=== PATIENT | female | born 1935 | race Caucasian/White ===

== ENCOUNTER 2022-04-09 11:46 | Inpatient (IN) ==
[2022-04-09] MEDS ORDERED: XOPENEX 1.25 MG/3 ML NEBULE NEB SCH (14:15)
[2022-04-09 14:38] LABS: ABG BASE EXCESS -2.8 mmol/L (-2.0-2.0); ABG HCO3 21.9 mmol/L (22-26)
[2022-04-09] MEDS ORDERED: XOPENEX 1.25 MG/3 ML NEBULE NEB ONE (14:38)
[2022-04-09 14:39] LABS: ABG ALLEN TEST POS
[2022-04-09] MEDS: BROVANA IN SCH ×2 (14:58→20:05)
[2022-04-09] MEDS: XOPENEX 1.25 MG/3 ML NEBULE NEB SCH ×2 (15:00→17:40)
[2022-04-09] MEDS: PULMICORT NEB TX 0.5 MG NEB SCH ×3 (15:00→20:05)
[2022-04-09 15:25] LABS: BASOPHILS # (AUTO) 0.1 X10^3/uL (0.0-0.1); BASOPHILS % (AUTO) 0.5 % (0.2-1.0); EOSINOPHILS # (AUTO) 0.1 x10^3/uL (0.0-0.2); EOSINOPHILS % (AUTO) 1.1 % (0.9-2.9); HEMATOCRIT 38.1 % (36.0-47.0); HEMOGLOBIN 12.8 g/dL (12.0-16.0); LYMPHOCYTES # (AUTO) 0.9 X10^3/uL (1.3-2.9); LYMPHOCYTES % (AUTO) 7.4 % (21.0-51.0); MEAN CORPUSCULAR HEMOGLOBIN 30.1 pg (27.0-34.0); MEAN CORPUSCULAR HGB CONC 33.5 g/dL (33.0-35.0); MEAN CORPUSCULAR VOLUME 89.9 fL (80.0-100.0); MEAN PLATELET VOLUME 7.5 fL (7.4-11.0); MONOCYTES # (AUTO) 0.4 x10^3/uL (0.3-0.8); MONOCYTES % (AUTO) 3.2 % (0.0-13.0); NEUTROPHILS # (AUTO) 10.8 x10^3/uL (2.2-4.8); NEUTROPHILS % (AUTO) 87.8 % (42.0-75.0); RED BLOOD COUNT 4.24 X10^6/uL (3.5-5.4); RED CELL DISTRIBUTION WIDTH 14.8 % (11.6-16.5); WHITE BLOOD COUNT 12.3 X10^3/uL (3.6-10.0)
[2022-04-09 15:33] LABS: BILIRUBIN,URINE NEGATIVE (NEGATIVE); BLOOD/HEMOGLOBIN,URINE 1+ (NEGATIVE); GLUCOSE, URINE NEGATIVE (NEGATIVE); KETONES,URINE NEGATIVE (NEGATIVE); LEUKOCYTE ESTERASE ,URINE NEGATIVE (NEGATIVE); NITRITES,URINE NEGATIVE (NEGATIVE); PROTEIN,URINE NEGATIVE (NEGATIVE); UROBILINOGEN,URINE NORMAL (NORMAL)
[2022-04-09] MEDS: ROCEPHIN VIAL 1 GRAM 1 G in NS 100 ML IV 100 ML IV SCH (15:50)
[2022-04-09 15:52] LABS: COLOR,URINE YELLOW (YELLOW)
[2022-04-09 15:53] LABS: APPEARANCE,URINE CLEAR (CLEAR); BACTERIA,URINE TRACE /HPF (NEGATIVE); RBC,URINE 0-2 /HPF (0-3); SQUAMOUS EPITHELIAL CELL,UR FEW /HPF (NEGATIVE)
[2022-04-09] MEDS: ZITHROMAX INJ 500 MG VIAL 500 MG in NS 250 ML IV 250 ML IV SCH (15:53)
[2022-04-09] MEDS: NS 1,000 ML IV 1,000 ML IV PRN (15:54)
[2022-04-09 15:58] LABS: ALANINE AMINOTRANSFERASE 23 Units/L (12-78); ALBUMIN 3.7 g/dL (3.4-5.0); ALKALINE PHOSPHATASE 83 Units/L (46-116); ASPARTATE AMINO TRANSFERASE 24 Units/L (15-37); BLOOD UREA NITROGEN 22 mg/dL (7-18); CALCIUM 9.1 mg/dL (8.5-10.1); CARBON DIOXIDE 26.3 mmol/L (21-32); CHLORIDE 104 mmol/L (98-107); COR NA(FOR HYPERGLY) 142 mmol/L (136-145); CREATININE 1.04 mg/dL (0.55-1.02); SODIUM 141 mmol/L (136-145); TOTAL PROTEIN 7.3 g/dL (6.4-8.2); eGFR NON BLACK RACES 53 (>60)
[2022-04-09] MEDS ORDERED: XOPENEX 1.25 MG/3 ML NEBULE NEB PRN (15:59)
[2022-04-09] MEDS: SOLU-Medrol 40 MG VIAL IVP SCH (17:05)
--- NOTE | 2022-04-09 17:07 | CT ---
HISTORYARDSTUDYCTA CHESTCOMPARISONPortable chest radiograph from February 23, [address]22TECHNIQUEAxial CT images of the chest were obtained after the administration of 75 mL Omnipaque 350 IV contrast utilizing a CTA protocol. 3D MIPS were performed and reviewed for further evaluation.Radiation dose: 152.38 mGy-cm total DLPFINDINGSNo significant pericardial effusion.No mediastinal or hilar lymphadenopathy.Aorta is normal in caliber without dissection.Pulmonary arteries are normal in caliber without filling defects to suggest a pulmonary embolus.Mild diffuse bronchial wall thickening.Thyroid appears normal.No pleural effusion.No focal infiltrate.No pneumothorax.No concerning lung parenchymal lesion identified.Imaged portion of the upper abdomen is unremarkable.No acute osseous abnormality.IMPRESSION1. No pulmonary embolus identified.2. Mild diffuse bronchial wall thickening could represent the sequela of an atypical/viral infectious process, bronchitis, asthma or chronic edema.Electronically signed by: Eliot Krishnamurthy (Apr 09, 2022 17:06:10)
[2022-04-09] MEDS ORDERED: NovoLIN R (or HumuLIN R) SUBCUT PRN (19:25)
[2022-04-09] MEDS: SNACK - Diabetic Appropriate PO SCH (21:52)
[2022-04-10] MEDS: XOPENEX 1.25 MG/3 ML NEBULE NEB SCH ×4 (00:20→17:50)
[2022-04-10] MEDS: SOLU-Medrol 40 MG VIAL IVP SCH ×3 (01:39→16:33)
[2022-04-10 05:14] LABS: BASOPHILS % (AUTO) 0.2 % (0.2-1.0); EOSINOPHILS % (AUTO) 0.1 % (0.9-2.9); HEMOGLOBIN 11.6 g/dL (12.0-16.0); LYMPHOCYTES # (AUTO) 0.9 X10^3/uL (1.3-2.9); LYMPHOCYTES % (AUTO) 8.9 % (21.0-51.0); MEAN CORPUSCULAR HGB CONC 34.2 g/dL (33.0-35.0); MEAN CORPUSCULAR VOLUME 87.7 fL (80.0-100.0); MEAN PLATELET VOLUME 7.4 fL (7.4-11.0); MONOCYTES # (AUTO) 0.3 x10^3/uL (0.3-0.8); MONOCYTES % (AUTO) 2.7 % (0.0-13.0); NEUTROPHILS # (AUTO) 8.6 x10^3/uL (2.2-4.8); NEUTROPHILS % (AUTO) 88.1 % (42.0-75.0); RED BLOOD COUNT 3.88 X10^6/uL (3.5-5.4); RED CELL DISTRIBUTION WIDTH 14.4 % (11.6-16.5); WHITE BLOOD COUNT 9.8 X10^3/uL (3.6-10.0)
[2022-04-10 05:25] LABS: BLOOD UREA NITROGEN 18 mg/dL (7-18); CALCIUM 8.7 mg/dL (8.5-10.1); CHLORIDE 105 mmol/L (98-107); COR NA(FOR HYPERGLY) 143 mmol/L (136-145); CREATININE 0.87 mg/dL (0.55-1.02); SODIUM 142 mmol/L (136-145); eGFR NON BLACK RACES > 60 (>60)
[2022-04-10] MEDS: SYNTHROID 125 mcg TAB PO SCH (06:22)
--- NOTE | 2022-04-10 07:45 | RAD ---
HISTORYWHEEZING, SOB HX ASTHMA, COPD, HTN. SX APPENDIX, HYST, ORTHO.STUDYCHEST, PA/LAT ADULTCOMPARISONCTA chest 04/09/2022FINDINGSCardiac silhouette size is normal. The lungs are grossly clear without focal consolidation or pleural effusion. No pneumothorax.IMPRESSIONNo acute chest process.Electronically signed by: YULIYA ASTUDILLO (Apr 10, 2022 07:43:20)
[2022-04-10] MEDS: BROVANA IN SCH ×2 (08:17→21:00)
[2022-04-10] MEDS: PULMICORT NEB TX 0.5 MG NEB SCH ×2 (08:17→21:00)
[2022-04-10] MEDS: ZITHROMAX INJ 500 MG VIAL 500 MG in NS 250 ML IV 250 ML IV SCH (09:51)
[2022-04-10] MEDS: ZESTRIL TAB 40 MG PO SCH (09:52)
[2022-04-10] MEDS: ZyrTEC TAB 10 MG PO SCH (09:52)
[2022-04-10] MEDS: VITAMIN D3 125 mcg (5,000 UNITS) PO SCH (09:52)
[2022-04-10] MEDS: ROCEPHIN VIAL 1 GRAM 1 G in NS 100 ML IV 100 ML IV SCH (10:00)
--- NOTE | 2022-04-10 11:54 | DR.H&P ---
H&P - History & Physical for Day of: H&P Date: 04/09/22 - Chief Complaint Chief Complaint: CCC, SOB - History of Present Illness History of Present Illness: PT IS 86 WF, DIRECT ADMIT FROM DR REYNA WITH FAILED OUPT BRONCHITIS. PT STATES SHE WAS TREATED INPT AT [facility] ~3-4 WEEKS AGO THEN COMPLETED PO AND IM ANTIBIOTIC TREATMENT THIS PAST WEEK WITHOUT IMPROVEMENT OF SYMPTOMS. - Past Medical History Past Medical History: Arthritis, Diabetes, Hypertension - Past Surgical History Surgical History: Appendectomy, Hysterectomy - Family History Family Medical History: Coronary Artery Disease, Hypertension - Social History Does patient currently use any type of tobacco product: No Have you used tobacco products in the last 12 months: No Type of Tobacco Use: None Does any household member use tobacco: No Alcohol Use: None Drug Use: None - Medications Home Medications: levofloxacin [From Levaquin] Allergy (Verified 04/09/22 14:15) Sulfa (Sulfonamide Antibiotics) [SULFA] Allergy (Verified 04/09/22 14:15) CONTINUE taking the following medications azithromycin 500 mg tablet 1 tab PO QDAY 04/09/22 [History] cetirizine 10 mg tablet 10 mg PO QDAY 04/09/22 [History] cholecalciferol (vitamin D3) 125 mcg (5,000 unit) tablet (Vitamin D3) 125 mcg PO QDAY 04/09/22 [History] elderberry fruit 200 mg capsule 200 mg PO DAILY 04/09/22 [History] glucosamine sulfate 500 mg tablet (Glucosamine) 500 mg PO QDAY 04/09/22 [History] levalbuterol HCl 1.25 mg/3 mL solution for nebulization 1.25 mg inhalation Q4H 04/09/22 [History] levothyroxine 125 mcg tablet 125 mcg PO QDAY 04/09/22 [History] lisinopril 40 mg tablet 40 mg PO QDAY 04/09/22 [History] prednisone 20 mg tablet 1 tab PO DAILY 04/09/22 [History] vitamin B12 0.5 mg-folic acid 1 mg tablet 1 tab PO QDAY 04/09/22 [History] - Review of Systems Constitutional: Weakness, Malaise. denies: Fever Eyes: No Symptoms Reported ENT: No Symptoms Reported Respiratory: Cough, Shortness of Breath, SOB with Excertion, Pleuritic Pain, Sputum, Wheezing Cardiovascular: No Symptoms Reported Gastrointestinal: Nausea Genitourinary: No Symptoms Reported Musculoskeletal: No Symptoms Reported Skin: No Symptoms Reported Neurological: No Symptoms Reported - Physical Exam Vital Signs: Temperature 97.8 F Pulse Rate [Left Radial] 69 Pulse Rate 83 Respiratory Rate 20 Blood Pressure [Left Arm] 168/78 O2 Sat by Pulse Oximetry 97 Oriented: Normal Eyes: Normal Ear: Normal Nose: Normal Throat: Normal Respiratory: Wheezes Throughout Cardiovascular: Normal : Normal Auscultation: Bowel Sounds: Normal Palpation: Normal Tenderness: Normal Skin: Decreased Turgur Musculoskeletal: Normal Psychiatric: Normal Speech Pattern: Clear, Appropriate - Assessment/Plan (1) Acute bronchitis Status: Acute Plan: ADMIT, IV ATBX, RESP THERAPY AND SUPPLEMENTAL O2. CARDIAC MONITORING, BP CONTROL. BS CONTROL, VERIFY HOME MEDICATION. SPUTUM CULTURE, CXR (2) Hypertension Status: Acute (3) Diabetes Status: Acute - Allergies Allergies/Adverse Reactions: Allergies Allergy/AdvReac Type Severity Reaction Status Date / Time levofloxacin [From Levaquin] Allergy Verified 04/09/22 14:15 Sulfa (Sulfonamide Allergy Verified 04/09/22 14:15 Antibiotics) [SULFA]
[2022-04-10] MEDS: SNACK - Diabetic Appropriate PO SCH (20:00)
[2022-04-10 21:56] LABS: ALANINE AMINOTRANSFERASE 24 Units/L (12-78); ALBUMIN 3.3 g/dL (3.4-5.0); ALKALINE PHOSPHATASE 69 Units/L (46-116); ASPARTATE AMINO TRANSFERASE 21 Units/L (15-37); COR CA(FOR HYPOALB) 9.3 mg/dL (8.5-10.1); TOTAL PROTEIN 6.5 g/dL (6.4-8.2)
[2022-04-11] MEDS: SOLU-Medrol 40 MG VIAL IVP SCH ×3 (00:11→17:00)
[2022-04-11] MEDS: XOPENEX 1.25 MG/3 ML NEBULE NEB SCH ×4 (05:39→17:41)
[2022-04-11] MEDS: SYNTHROID 125 mcg TAB PO SCH (05:40)
[2022-04-11 06:11] LABS: BASOPHILS % (AUTO) 0.1 % (0.2-1.0); HEMOGLOBIN 11.5 g/dL (12.0-16.0); LYMPHOCYTES % (AUTO) 6.4 % (21.0-51.0); MEAN CORPUSCULAR HGB CONC 33.9 g/dL (33.0-35.0); MEAN CORPUSCULAR VOLUME 88.5 fL (80.0-100.0); MEAN PLATELET VOLUME 7.5 fL (7.4-11.0); MONOCYTES # (AUTO) 0.5 x10^3/uL (0.3-0.8); MONOCYTES % (AUTO) 3.6 % (0.0-13.0); NEUTROPHILS # (AUTO) 13.5 x10^3/uL (2.2-4.8); NEUTROPHILS % (AUTO) 89.9 % (42.0-75.0); RED BLOOD COUNT 3.84 X10^6/uL (3.5-5.4); RED CELL DISTRIBUTION WIDTH 14.6 % (11.6-16.5)
[2022-04-11] MEDS: LOVENOX INJ 40 MG SYR SC SCH (09:04)
[2022-04-11] MEDS: VITAMIN D3 125 mcg (5,000 UNITS) PO SCH (09:05)
[2022-04-11] MEDS: ZyrTEC TAB 10 MG PO SCH (09:05)
[2022-04-11] MEDS: ROCEPHIN VIAL 1 GRAM 1 G in NS 100 ML IV 100 ML IV SCH (09:05)
[2022-04-11] MEDS: ZESTRIL TAB 40 MG PO SCH (09:05)
[2022-04-11] MEDS: BROVANA IN SCH ×2 (09:26→20:09)
[2022-04-11] MEDS: PULMICORT NEB TX 0.5 MG NEB SCH ×2 (09:26→20:09)
[2022-04-11] MEDS: ZITHROMAX INJ 500 MG VIAL 500 MG in NS 250 ML IV 250 ML IV SCH (10:12)
[2022-04-11] MEDS: PROTONIX INJ 40 MG VIAL IVP SCH ×2 (10:42→21:03)
[2022-04-11] MEDS: TESSALON PERLES PO SCH ×2 (10:42→21:03)
--- NOTE | 2022-04-11 17:27 | PCM.PROG ---
Progress Note - Progress Note for Day of Date of Exam: 04/10/22 - Subjective Subjective: PT IS 86 WF, DIRECT ADMIT FROM DR REYNA WITH FAILED OUPT BRONCHITIS. PT STATES SHE WAS TREATED INPT AT [facility] ~3-4 WEEKS AGO THEN COMPLETED PO AND IM ANTIBIOTIC TREATMENT THIS PAST WEEK WITHOUT IMPROVEMENT OF SYMPTOMS. SINCE ADMISSION SHE HAD BEEN ON IV ZITHROMAX AND ROCEPHIN WITH IV SOLU MEDROL AND RESP THERAPY. PT CONTINUES TO CO SEVERE COUGHING WITH MUCOUS PRODUCTION. PT CO SORE TO UPPER ABDOMINAL WALL MUSCLES FROM COUGHING. WE REVIEWED LABS AND DIAGNOSTIC TESTS WITH PT THIS MORNING. - Past Medical Family Social History Past Med/Fam/Surg Hx: No changes since H&P Allergies: Allergies levofloxacin [From Levaquin] Allergy (Verified 04/09/22 14:15) Sulfa (Sulfonamide Antibiotics) [SULFA] Allergy (Verified 04/09/22 14:15) - Review of Systems ROS: No change since H&P - Vital Signs and I&O's Vital Signs: Temperature 97.5 F Pulse Rate [Left Radial] 75 Pulse Rate 74 Respiratory Rate 20 Blood Pressure [Left Arm] 157/70 O2 Sat by Pulse Oximetry 94 Intake and Output: Intake & Output 04/09/22 04/10/22 04/11/22 04/12/22 11:59 11:59 11:59 11:59 Intake Total 880 / 880 1320 / 1320 840 / 840 Balance 880 / 880 1320 / 1320 840 / 840 - Physical Exam Oriented: Normal Eyes: Normal Ear: Normal Nose: Normal Throat: Normal Respiratory: Diminished, Wheezes Cardiovascular: Normal : Normal Auscultation: Bowel Sounds: Normal Tenderness: Normal Skin: Decreased Turgur Musculoskeletal: Normal Psychiatric: Normal Speech Pattern: Clear - Laboratory and Diagnostics Result Diagrams: 04/11/22 05:25 04/10/22 04:25 Labs: 04/09/22 14:55 Urine,Clean Catch Urine Culture - Final 04/09/22 17:25 Sputum - Expectorated Sputum Sputum Culture - Preliminary 04/09/22 17:25 Sputum - Expectorated Sputum - Final Laboratory WBC 15.0 X10^3/uL (3.6-10.0) H 04/11/22 05:25 RBC 3.84 X10^6/uL (3.5-5.4) 04/11/22 05:25 Hgb 11.5 g/dL (12.0-16.0) L 04/11/22 05:25 Hct 34.0 % (36.0-47.0) L 04/11/22 05:25 MCV 88.5 fL (80.0-100.0) 04/11/22 05:25 MCH 30.0 pg (27.0-34.0) 04/11/22 05:25 MCHC 33.9 g/dL (33.0-35.0) 04/11/22 05:25 RDW 14.6 % (11.6-16.5) 04/11/22 05:25 Plt Count 242 X10^3/uL (150.0-450.0) 04/11/22 05:25 MPV 7.5 fL (7.4-11.0) 04/11/22 05:25 Neut % (Auto) 89.9 % (42.0-75.0) H 04/11/22 05:25 Lymph % (Auto) 6.4 % (21.0-51.0) L 04/11/22 05:25 [place] % (Auto) 3.6 % (0.0-13.0) 04/11/22 05:25 Eos % (Auto) 0.0 % (0.9-2.9) L 04/11/22 05:25 Baso % (Auto) 0.1 % (0.2-1.0) L 04/11/22 05:25 Neut # (Auto) 13.5 x10^3/uL (2.2-4.8) H 04/11/22 05:25 Lymph # (Auto) 1.0 X10^3/uL (1.3-2.9) L 04/11/22 05:25 [place] # (Auto) 0.5 x10^3/uL (0.3-0.8) 04/11/22 05:25 Eos # (Auto) 0.0 x10^3/uL (0.0-0.2) 04/11/22 05:25 Baso # (Auto) 0.0 X10^3/uL (0.0-0.1) 04/11/22 05:25 Absolute Nucleated RBC 0.0 /100WBC 04/11/22 05:25 ESR 28 MM/HOUR (0-20) H 04/09/22 14:40 D-Dimer 0.49 ug/ml (0.0-0.57) 04/09/22 14:40 Sample Site Rrad 04/09/22 14:35 ABG pH 7.380 (7.35-7.45) 04/09/22 14:35 ABG pCO2 37.0 mmHg (35.0-45.0) 04/09/22 14:35 ABG pO2 135.0 mmHg (80.0-100.0) H 04/09/22 14:35 ABG HCO3 21.9 mmol/L (22-26) L 04/09/22 14:35 ABG O2 Saturation 99.0 % (90-100) 04/09/22 14:35 ABG Base Excess -2.8 mmol/L (-2.0-2.0) L 04/09/22 14:35 Ranjan Test Pos 04/09/22 14:35 A-a Gradient -32.0 mmHg 04/09/22 14:35 FiO2 21.0 04/09/22 14:35 Blood Gas Comments Nicole well ms 04/09/22 14:35 Sodium 142 mmol/L (136-145) 04/10/22 04:25 Corrected Sodium 143 mmol/L (136-145) 04/10/22 04:25 Potassium 4.4 mmol/L (3.5-5.1) 04/10/22 04:25 Chloride 105 mmol/L (98-107) 04/10/22 04:25 Carbon Dioxide 27.0 mmol/L (21-32) 04/10/22 04:25 BUN 18 mg/dL (7-18) 04/10/22 04:25 Creatinine 0.87 mg/dL (0.55-1.02) 04/10/22 04:25 Est GFR (MDRD) Af Amer > 60 (>60) 04/10/22 04:25 Est GFR (MDRD) Non-Af > 60 (>60) 04/10/22 04:25 Glucose 132 mg/dL (65-99) H 04/10/22 04:25 POC Glucose (mg/dL) 247 mg/dL (65-99) H 04/11/22 16:57 Calcium 8.7 mg/dL (8.5-10.1) 04/10/22 04:25 Corrected Calcium 9.3 mg/dL (8.5-10.1) 04/10/22 04:25 Total Bilirubin 0.10 mg/dL (0.2-1.0) L 04/10/22 04:25 AST 21 Units/L (15-37) 04/10/22 04:25 ALT 24 Units/L (12-78) 04/10/22 04:25 Alkaline Phosphatase 69 Units/L (46-116) 04/10/22 04:25 Creatine Kinase 211 Units/L (26-192) H 04/09/22 22:15 Troponin I High Sens 8.1 ng/L (4.0-60.0) 04/10/22 04:25 C-Reactive Protein 2.20 mg/L (0-3.0) 04/09/22 14:40 Total Protein 6.5 g/dL (6.4-8.2) 04/10/22 04:25 Albumin 3.3 g/dL (3.4-5.0) L 04/10/22 04:25 Globulin 3.2 g/dL (2.5-4.5) 04/10/22 04:25 Albumin/Globulin Ratio 1.0 Ratio (1.1-2.1) L 04/10/22 04:25 Specimen Type Clean catch urine 04/09/22 14:55 Urine Color Yellow (YELLOW) 04/09/22 14:55 Urine Appearance Clear (CLEAR) 04/09/22 14:55 Urine pH 5.0 (5.0 - 8.0) 04/09/22 14:55 Ur Specific [place] 1.020 (1.000-1.030) 04/09/22 14:55 Urine Protein Negative (NEGATIVE) 04/09/22 14:55 Urine Glucose (UA) Negative (NEGATIVE) 04/09/22 14:55 Urine Ketones Negative (NEGATIVE) 04/09/22 14:55 Urine Blood 1+ (NEGATIVE) 04/09/22 14:55 Urine Nitrite Negative (NEGATIVE) 04/09/22 14:55 Urine Bilirubin Negative (NEGATIVE) 04/09/22 14:55 Urine Urobilinogen Normal (NORMAL) 04/09/22 14:55 Ur Leukocyte Esterase Negative (NEGATIVE) 04/09/22 14:55 Urine RBC 0-2 /HPF (0-3) 04/09/22 14:55 Urine WBC 0-2 /HPF (0-5) 04/09/22 14:55 Ur Squamous Epith Cells Few /HPF (NEGATIVE) 04/09/22 14:55 Urine Bacteria Trace /HPF (NEGATIVE) 04/09/22 14:55 Ur Culture Indicated? No/not indicated 04/09/22 14:55 SARS-CoV-2 (PCR) Negative (NEGATIVE) 04/09/22 14:21 Influenza Type A (PCR) Negative (NEGATIVE) 04/09/22 14:21 Influenza Type B (PCR) Negative (NEGATIVE) 04/09/22 14:21 RSV (PCR) Negative (NEGATIVE) 04/09/22 14:21 - Plan (1) Acute bronchitis Status: Acute Plan: IV ATBX, RESP THERAPY AND SUPPLEMENTAL O2. CARDIAC MONITORING, BP CONTROL. BS CONTROL, VERIFY HOME MEDICATION. SPUTUM CULTURE, CXR (2) Hypertension Status: Acute (3) Diabetes Status: Acute
--- NOTE | 2022-04-11 17:29 | PCM.PROG ---
Progress Note - Progress Note for Day of Date of Exam: 04/11/22 - Subjective Subjective: PT IS 86 WF, DIRECT ADMIT FROM DR REYNA WITH FAILED OUPT BRONCHITIS. PT STATES SHE WAS TREATED INPT AT [facility] ~3-4 WEEKS AGO THEN COMPLETED PO AND IM ANTIBIOTIC TREATMENT THIS PAST WEEK WITHOUT IMPROVEMENT OF SYMPTOMS. SINCE ADMISSION SHE HAD BEEN ON IV ZITHROMAX AND ROCEPHIN WITH IV SOLU MEDROL AND RESP THERAPY. PT CONTINUES TO CO SEVERE COUGHING WITH MUCOUS PRODUCTION. PT REPORTS EPISODE OF NAUSEA THIS MORNING WITHOUT VOMITING. PT DENIES ANY FEVER OR CHILLS. PT WBC 15, HGB 11.5, BUN 18/CREAT 0.87 TODAY. PT ENCOURAGED TO INCREASE PO HYDRATION AND AMBULATE IN ROOM WITH ASSITANCE NEEDED. - Past Medical Family Social History Past Med/Fam/Surg Hx: No changes since H&P Allergies: Allergies levofloxacin [From Levaquin] Allergy (Verified 04/09/22 14:15) Sulfa (Sulfonamide Antibiotics) [SULFA] Allergy (Verified 04/09/22 14:15) - Review of Systems ROS: No change since H&P - Vital Signs and I&O's Vital Signs: Temperature 97.5 F Pulse Rate [Left Radial] 75 Pulse Rate 74 Respiratory Rate 20 Blood Pressure [Left Arm] 157/70 O2 Sat by Pulse Oximetry 94 Intake and Output: Intake & Output 04/09/22 04/10/22 04/11/22 04/12/22 11:59 11:59 11:59 11:59 Intake Total 880 / 880 1320 / 1320 840 / 840 Balance 880 / 880 1320 / 1320 840 / 840 - Physical Exam Oriented: Normal Eyes: Normal Ear: Normal Nose: Normal Throat: Normal Respiratory: Diminished, Wheezes Cardiovascular: Normal : Normal Auscultation: Bowel Sounds: Normal Tenderness: Normal Skin: Decreased Turgur Musculoskeletal: Normal Psychiatric: Normal Speech Pattern: Clear - Laboratory and Diagnostics Result Diagrams: 04/11/22 05:25 04/10/22 04:25 Labs: 04/09/22 14:55 Urine,Clean Catch Urine Culture - Final 04/09/22 17:25 Sputum - Expectorated Sputum Sputum Culture - Preliminary 04/09/22 17:25 Sputum - Expectorated Sputum - Final Laboratory WBC 15.0 X10^3/uL (3.6-10.0) H 04/11/22 05:25 RBC 3.84 X10^6/uL (3.5-5.4) 04/11/22 05:25 Hgb 11.5 g/dL (12.0-16.0) L 04/11/22 05:25 Hct 34.0 % (36.0-47.0) L 04/11/22 05:25 MCV 88.5 fL (80.0-100.0) 04/11/22 05:25 MCH 30.0 pg (27.0-34.0) 04/11/22 05:25 MCHC 33.9 g/dL (33.0-35.0) 04/11/22 05:25 RDW 14.6 % (11.6-16.5) 04/11/22 05:25 Plt Count 242 X10^3/uL (150.0-450.0) 04/11/22 05:25 MPV 7.5 fL (7.4-11.0) 04/11/22 05:25 Neut % (Auto) 89.9 % (42.0-75.0) H 04/11/22 05:25 Lymph % (Auto) 6.4 % (21.0-51.0) L 04/11/22 05:25 [place] % (Auto) 3.6 % (0.0-13.0) 04/11/22 05:25 Eos % (Auto) 0.0 % (0.9-2.9) L 04/11/22 05:25 Baso % (Auto) 0.1 % (0.2-1.0) L 04/11/22 05:25 Neut # (Auto) 13.5 x10^3/uL (2.2-4.8) H 04/11/22 05:25 Lymph # (Auto) 1.0 X10^3/uL (1.3-2.9) L 04/11/22 05:25 [place] # (Auto) 0.5 x10^3/uL (0.3-0.8) 04/11/22 05:25 Eos # (Auto) 0.0 x10^3/uL (0.0-0.2) 04/11/22 05:25 Baso # (Auto) 0.0 X10^3/uL (0.0-0.1) 04/11/22 05:25 Absolute Nucleated RBC 0.0 /100WBC 04/11/22 05:25 ESR 28 MM/HOUR (0-20) H 04/09/22 14:40 D-Dimer 0.49 ug/ml (0.0-0.57) 04/09/22 14:40 Sample Site Rrad 04/09/22 14:35 ABG pH 7.380 (7.35-7.45) 04/09/22 14:35 ABG pCO2 37.0 mmHg (35.0-45.0) 04/09/22 14:35 ABG pO2 135.0 mmHg (80.0-100.0) H 04/09/22 14:35 ABG HCO3 21.9 mmol/L (22-26) L 04/09/22 14:35 ABG O2 Saturation 99.0 % (90-100) 04/09/22 14:35 ABG Base Excess -2.8 mmol/L (-2.0-2.0) L 04/09/22 14:35 Ranjan Test Pos 04/09/22 14:35 A-a Gradient -32.0 mmHg 04/09/22 14:35 FiO2 21.0 04/09/22 14:35 Blood Gas Comments Nicole well ms 04/09/22 14:35 Sodium 142 mmol/L (136-145) 04/10/22 04:25 Corrected Sodium 143 mmol/L (136-145) 04/10/22 04:25 Potassium 4.4 mmol/L (3.5-5.1) 04/10/22 04:25 Chloride 105 mmol/L (98-107) 04/10/22 04:25 Carbon Dioxide 27.0 mmol/L (21-32) 04/10/22 04:25 BUN 18 mg/dL (7-18) 04/10/22 04:25 Creatinine 0.87 mg/dL (0.55-1.02) 04/10/22 04:25 Est GFR (MDRD) Af Amer > 60 (>60) 04/10/22 04:25 Est GFR (MDRD) Non-Af > 60 (>60) 04/10/22 04:25 Glucose 132 mg/dL (65-99) H 04/10/22 04:25 POC Glucose (mg/dL) 247 mg/dL (65-99) H 04/11/22 16:57 Calcium 8.7 mg/dL (8.5-10.1) 04/10/22 04:25 Corrected Calcium 9.3 mg/dL (8.5-10.1) 04/10/22 04:25 Total Bilirubin 0.10 mg/dL (0.2-1.0) L 04/10/22 04:25 AST 21 Units/L (15-37) 04/10/22 04:25 ALT 24 Units/L (12-78) 04/10/22 04:25 Alkaline Phosphatase 69 Units/L (46-116) 04/10/22 04:25 Creatine Kinase 211 Units/L (26-192) H 04/09/22 22:15 Troponin I High Sens 8.1 ng/L (4.0-60.0) 04/10/22 04:25 C-Reactive Protein 2.20 mg/L (0-3.0) 04/09/22 14:40 Total Protein 6.5 g/dL (6.4-8.2) 04/10/22 04:25 Albumin 3.3 g/dL (3.4-5.0) L 04/10/22 04:25 Globulin 3.2 g/dL (2.5-4.5) 04/10/22 04:25 Albumin/Globulin Ratio 1.0 Ratio (1.1-2.1) L 04/10/22 04:25 Specimen Type Clean catch urine 04/09/22 14:55 Urine Color Yellow (YELLOW) 04/09/22 14:55 Urine Appearance Clear (CLEAR) 04/09/22 14:55 Urine pH 5.0 (5.0 - 8.0) 04/09/22 14:55 Ur Specific [place] 1.020 (1.000-1.030) 04/09/22 14:55 Urine Protein Negative (NEGATIVE) 04/09/22 14:55 Urine Glucose (UA) Negative (NEGATIVE) 04/09/22 14:55 Urine Ketones Negative (NEGATIVE) 04/09/22 14:55 Urine Blood 1+ (NEGATIVE) 04/09/22 14:55 Urine Nitrite Negative (NEGATIVE) 04/09/22 14:55 Urine Bilirubin Negative (NEGATIVE) 04/09/22 14:55 Urine Urobilinogen Normal (NORMAL) 04/09/22 14:55 Ur Leukocyte Esterase Negative (NEGATIVE) 04/09/22 14:55 Urine RBC 0-2 /HPF (0-3) 04/09/22 14:55 Urine WBC 0-2 /HPF (0-5) 04/09/22 14:55 Ur Squamous Epith Cells Few /HPF (NEGATIVE) 04/09/22 14:55 Urine Bacteria Trace /HPF (NEGATIVE) 04/09/22 14:55 Ur Culture Indicated? No/not indicated 04/09/22 14:55 SARS-CoV-2 (PCR) Negative (NEGATIVE) 04/09/22 14:21 Influenza Type A (PCR) Negative (NEGATIVE) 04/09/22 14:21 Influenza Type B (PCR) Negative (NEGATIVE) 04/09/22 14:21 RSV (PCR) Negative (NEGATIVE) 04/09/22 14:21 - Plan (1) Acute bronchitis Status: Acute Plan: IV ATBX, RESP THERAPY AND SUPPLEMENTAL O2. CARDIAC MONITORING, BP CONTROL. BS CONTROL, VERIFY HOME MEDICATION. SPUTUM CULTURE, CXR (2) Hypertension Status: Acute (3) Diabetes Status: Acute
[2022-04-11] MEDS: ROBITUSSIN DM PO SCH ×2 (17:41→21:06)
[2022-04-11] MEDS: SNACK - Diabetic Appropriate PO SCH (21:02)
[2022-04-12] MEDS: SOLU-Medrol 40 MG VIAL IVP SCH ×2 (00:26→09:26)
[2022-04-12] MEDS: XOPENEX 1.25 MG/3 ML NEBULE NEB SCH ×4 (00:36→16:40)
[2022-04-12 05:37] LABS: BASOPHILS % (AUTO) 0.1 % (0.2-1.0); HEMATOCRIT 31.8 % (36.0-47.0); HEMOGLOBIN 10.8 g/dL (12.0-16.0); LYMPHOCYTES # (AUTO) 0.7 X10^3/uL (1.3-2.9); LYMPHOCYTES % (AUTO) 4.6 % (21.0-51.0); MEAN CORPUSCULAR HEMOGLOBIN 30.1 pg (27.0-34.0); MEAN CORPUSCULAR VOLUME 88.6 fL (80.0-100.0); MEAN PLATELET VOLUME 7.7 fL (7.4-11.0); MONOCYTES # (AUTO) 0.5 x10^3/uL (0.3-0.8); MONOCYTES % (AUTO) 3.5 % (0.0-13.0); NEUTROPHILS # (AUTO) 13.2 x10^3/uL (2.2-4.8); NEUTROPHILS % (AUTO) 91.8 % (42.0-75.0); RED BLOOD COUNT 3.59 X10^6/uL (3.5-5.4); RED CELL DISTRIBUTION WIDTH 14.7 % (11.6-16.5); WHITE BLOOD COUNT 14.4 X10^3/uL (3.6-10.0)
[2022-04-12 05:51] LABS: ALANINE AMINOTRANSFERASE 22 Units/L (12-78); ALBUMIN 2.8 g/dL (3.4-5.0); ALKALINE PHOSPHATASE 65 Units/L (46-116); ASPARTATE AMINO TRANSFERASE 15 Units/L (15-37); BLOOD UREA NITROGEN 26 mg/dL (7-18); CALCIUM 8.4 mg/dL (8.5-10.1); CARBON DIOXIDE 28.7 mmol/L (21-32); CHLORIDE 109 mmol/L (98-107); COR CA(FOR HYPOALB) 9.4 mg/dL (8.5-10.1); COR NA(FOR HYPERGLY) 146 mmol/L (136-145); CREATININE 0.88 mg/dL (0.55-1.02); SODIUM 145 mmol/L (136-145); TOTAL PROTEIN 5.5 g/dL (6.4-8.2); eGFR NON BLACK RACES > 60 (>60)
[2022-04-12] MEDS: SYNTHROID 125 mcg TAB PO SCH (06:01)
[2022-04-12 06:03] LABS: BAND NEUTROPHILS % 2 % (0-10); METAMYELOCYTES % 1; PLATELET MORPHOLOGY COMMENT NORMAL (NORMAL)
--- NOTE | 2022-04-12 06:59 | RAD ---
HISTORYFollow-up bronchitisSTUDYChest AP [id number]/30/2022FINDINGSHear t size is normal. Chana are normal. Lungs are mildly hyperinflated but free of acute infiltrates. No pleural effusions are identified. Bony thorax is unremarkable.IMPRESSIONLungs remain mildly hyperinflated but free of acute infiltratesElectronically signed by: MARIA M DE GUZMAN (Apr 12, 2022 06:57:35)
[2022-04-12] MEDS: ROCEPHIN VIAL 1 GRAM 1 G in NS 100 ML IV 100 ML IV SCH (09:25)
[2022-04-12] MEDS: LOVENOX INJ 40 MG SYR SC SCH (09:26)
[2022-04-12] MEDS: TESSALON PERLES PO SCH ×2 (09:27→21:05)
[2022-04-12] MEDS: VITAMIN D3 125 mcg (5,000 UNITS) PO SCH (09:27)
[2022-04-12] MEDS: ROBITUSSIN DM PO SCH ×4 (09:27→21:05)
[2022-04-12] MEDS: ZyrTEC TAB 10 MG PO SCH (09:27)
[2022-04-12] MEDS: ZESTRIL TAB 40 MG PO SCH (09:27)
[2022-04-12] MEDS: PROTONIX INJ 40 MG VIAL IVP SCH ×2 (09:34→21:05)
[2022-04-12] MEDS: BROVANA IN SCH ×2 (09:35→21:41)
[2022-04-12] MEDS: PULMICORT NEB TX 0.5 MG NEB SCH ×2 (09:35→21:41)
[2022-04-12] MEDS: ZITHROMAX INJ 500 MG VIAL 500 MG in NS 250 ML IV 250 ML IV SCH (10:56)
--- NOTE | 2022-04-12 12:25 | PCM.PROG ---
Progress Note - Progress Note for Day of Date of Exam: 04/12/22 - Subjective Subjective: PT IS 86 WF, DIRECT ADMIT FROM DR RENYA WITH FAILED OUPT BRONCHITIS. PT STATES SHE WAS TREATED INPT AT [facility] ~3-4 WEEKS AGO THEN COMPLETED PO AND IM ANTIBIOTIC TREATMENT THIS PAST WEEK WITHOUT IMPROVEMENT OF SYMPTOMS. SINCE ADMISSION SHE HAD BEEN ON IV ZITHROMAX AND ROCEPHIN WITH IV SOLU MEDROL AND RESP THERAPY. PT CONTINUES TO CO SEVERE COUGHING WITH MUCOUS PRODUCTION. PT CO STEROIDS MAKING HER BLOOD PRESSURE RUN HIGHER AND SHE HAS NOT BEEN ABLE TO SLEEP. BP WAS 180/81 THIS MORNING PRIOR TO TAKING AM MEDICATION. PT DENIES ANY FEVER OR CHILLS. PT WBC 14.4, HGB 10.8, BUN 26/CREAT 0.88 TODAY. PT ENCOURAGED TO INCREASE PO HYDRATION AND AMBULATE IN ROOM WITH ASSITANCE NEEDED. - Past Medical Family Social History Past Med/Fam/Surg Hx: No changes since H&P Allergies: Allergies levofloxacin [From Levaquin] Allergy (Verified 04/09/22 14:15) Sulfa (Sulfonamide Antibiotics) [SULFA] Allergy (Verified 04/09/22 14:15) - Review of Systems ROS: No change since H&P - Vital Signs and I&O's Vital Signs: Temperature 98.2 F Pulse Rate [Left Radial] 78 Pulse Rate 79 Respiratory Rate 20 Blood Pressure [Left Arm] 171/77 O2 Sat by Pulse Oximetry 95 Intake and Output: Intake & Output 04/10/22 04/11/22 04/12/22 04/13/22 11:59 11:59 11:59 11:59 Intake Total 880 / 880 1320 / 1320 2017 Balance 880 / 880 1320 / 1320 2017 - Physical Exam Oriented: Normal Eyes: Normal Ear: Normal Nose: Normal Throat: Normal Respiratory: Diminished, Wheezes Cardiovascular: Normal : Normal Auscultation: Bowel Sounds: Normal Tenderness: Normal Skin: Decreased Turgur Musculoskeletal: Normal Psychiatric: Normal Speech Pattern: Clear - Laboratory and Diagnostics Result Diagrams: 04/12/22 04:40 04/12/22 04:40 Labs: 04/09/22 15:00 Blood Blood Culture - Preliminary 04/09/22 14:40 Blood Blood Culture - Preliminary 04/09/22 17:25 Sputum - Expectorated Sputum Sputum Culture - Final 04/09/22 17:25 Sputum - Expectorated Sputum - Final 04/09/22 14:55 Urine,Clean Catch Urine Culture - Final Laboratory WBC 14.4 X10^3/uL (3.6-10.0) H 04/12/22 04:40 RBC 3.59 X10^6/uL (3.5-5.4) 04/12/22 04:40 Hgb 10.8 g/dL (12.0-16.0) L 04/12/22 04:40 Hct 31.8 % (36.0-47.0) L 04/12/22 04:40 MCV 88.6 fL (80.0-100.0) 04/12/22 04:40 MCH 30.1 pg (27.0-34.0) 04/12/22 04:40 MCHC 34.0 g/dL (33.0-35.0) 04/12/22 04:40 RDW 14.7 % (11.6-16.5) 04/12/22 04:40 Plt Count 233 X10^3/uL (150.0-450.0) 04/12/22 04:40 Plt Count Comment Adequate (ADEQUATE) 04/12/22 04:40 MPV 7.7 fL (7.4-11.0) 04/12/22 04:40 Neut % (Auto) 91.8 % (42.0-75.0) H 04/12/22 04:40 Lymph % (Auto) 4.6 % (21.0-51.0) L 04/12/22 04:40 [place] % (Auto) 3.5 % (0.0-13.0) 04/12/22 04:40 Eos % (Auto) 0.0 % (0.9-2.9) L 04/12/22 04:40 Baso % (Auto) 0.1 % (0.2-1.0) L 04/12/22 04:40 Neut # (Auto) 13.2 x10^3/uL (2.2-4.8) H 04/12/22 04:40 Lymph # (Auto) 0.7 X10^3/uL (1.3-2.9) L 04/12/22 04:40 [place] # (Auto) 0.5 x10^3/uL (0.3-0.8) 04/12/22 04:40 Eos # (Auto) 0.0 x10^3/uL (0.0-0.2) 04/12/22 04:40 Baso # (Auto) 0.0 X10^3/uL (0.0-0.1) 04/12/22 04:40 Absolute Nucleated RBC 0.0 /100WBC 04/12/22 04:40 Total Counted 100 04/12/22 04:40 Neutrophils % (Manual) 84 % (39-76) H 04/12/22 04:40 Band Neutrophils % 2 % (0-10) 04/12/22 04:40 Lymphocytes % (Manual) 8 % (13-43) L 04/12/22 04:40 Monocytes % (Manual) 5 % (4-9) 04/12/22 04:40 Metamyelocytes % 1 04/12/22 04:40 Plt Morphology Comment Normal (NORMAL) 04/12/22 04:40 RBC Morphology Normal (NORMAL) 04/12/22 04:40 ESR 28 MM/HOUR (0-20) H 04/09/22 14:40 D-Dimer 0.49 ug/ml (0.0-0.57) 04/09/22 14:40 Sample Site Rrad 04/09/22 14:35 ABG pH 7.380 (7.35-7.45) 04/09/22 14:35 ABG pCO2 37.0 mmHg (35.0-45.0) 04/09/22 14:35 ABG pO2 135.0 mmHg (80.0-100.0) H 04/09/22 14:35 ABG HCO3 21.9 mmol/L (22-26) L 04/09/22 14:35 ABG O2 Saturation 99.0 % (90-100) 04/09/22 14:35 ABG Base Excess -2.8 mmol/L (-2.0-2.0) L 04/09/22 14:35 Ranjan Test Pos 04/09/22 14:35 A-a Gradient -32.0 mmHg 04/09/22 14:35 FiO2 21.0 04/09/22 14:35 Blood Gas Comments Nicole well ms 04/09/22 14:35 Sodium 145 mmol/L (136-145) 04/12/22 04:40 Corrected Sodium 146 mmol/L (136-145) H 04/12/22 04:40 Potassium 4.0 mmol/L (3.5-5.1) 04/12/22 04:40 Chloride 109 mmol/L (98-107) H 04/12/22 04:40 Carbon Dioxide 28.7 mmol/L (21-32) 04/12/22 04:40 BUN 26 mg/dL (7-18) H 04/12/22 04:40 Creatinine 0.88 mg/dL (0.55-1.02) 04/12/22 04:40 Est GFR (MDRD) Af Amer > 60 (>60) 04/12/22 04:40 Est GFR (MDRD) Non-Af > 60 (>60) 04/12/22 04:40 Glucose 155 mg/dL (65-99) H 04/12/22 04:40 POC Glucose (mg/dL) 174 mg/dL (65-99) H 04/12/22 10:58 Calcium 8.4 mg/dL (8.5-10.1) L 04/12/22 04:40 Corrected Calcium 9.4 mg/dL (8.5-10.1) 04/12/22 04:40 Total Bilirubin 0.10 mg/dL (0.2-1.0) L 04/12/22 04:40 AST 15 Units/L (15-37) 04/12/22 04:40 ALT 22 Units/L (12-78) 04/12/22 04:40 Alkaline Phosphatase 65 Units/L (46-116) 04/12/22 04:40 Creatine Kinase 211 Units/L (26-192) H 04/09/22 22:15 Troponin I High Sens 8.1 ng/L (4.0-60.0) 04/10/22 04:25 C-Reactive Protein 2.20 mg/L (0-3.0) 04/09/22 14:40 Total Protein 5.5 g/dL (6.4-8.2) L 04/12/22 04:40 Albumin 2.8 g/dL (3.4-5.0) L 04/12/22 04:40 Globulin 2.7 g/dL (2.5-4.5) 04/12/22 04:40 Albumin/Globulin Ratio 1.0 Ratio (1.1-2.1) L 04/12/22 04:40 Specimen Type Clean catch urine 04/09/22 14:55 Urine Color Yellow (YELLOW) 04/09/22 14:55 Urine Appearance Clear (CLEAR) 04/09/22 14:55 Urine pH 5.0 (5.0 - 8.0) 04/09/22 14:55 Ur Specific [place] 1.020 (1.000-1.030) 04/09/22 14:55 Urine Protein Negative (NEGATIVE) 04/09/22 14:55 Urine Glucose (UA) Negative (NEGATIVE) 04/09/22 14:55 Urine Ketones Negative (NEGATIVE) 04/09/22 14:55 Urine Blood 1+ (NEGATIVE) 04/09/22 14:55 Urine Nitrite Negative (NEGATIVE) 04/09/22 14:55 Urine Bilirubin Negative (NEGATIVE) 04/09/22 14:55 Urine Urobilinogen Normal (NORMAL) 04/09/22 14:55 Ur Leukocyte Esterase Negative (NEGATIVE) 04/09/22 14:55 Urine RBC 0-2 /HPF (0-3) 04/09/22 14:55 Urine WBC 0-2 /HPF (0-5) 04/09/22 14:55 Ur Squamous Epith Cells Few /HPF (NEGATIVE) 04/09/22 14:55 Urine Bacteria Trace /HPF (NEGATIVE) 04/09/22 14:55 Ur Culture Indicated? No/not indicated 04/09/22 14:55 SARS-CoV-2 (PCR) Negative (NEGATIVE) 04/09/22 14:21 Influenza Type A (PCR) Negative (NEGATIVE) 04/09/22 14:21 Influenza Type B (PCR) Negative (NEGATIVE) 04/09/22 14:21 RSV (PCR) Negative (NEGATIVE) 04/09/22 14:21 Miscellaneous Test See scanned report 04/09/22 14:46 - Plan (1) Acute bronchitis Status: Acute Plan: IV ATBX, RESP THERAPY AND SUPPLEMENTAL O2. CARDIAC MONITORING, BP CONTROL. BS CONTROL, VERIFY HOME MEDICATION. SPUTUM CULTURE, CXR (2) Hypertension Status: Acute (3) Diabetes Status: Acute
[2022-04-12] MEDS: NS 1,000 ML IV 1,000 ML IV PRN (16:14)
[2022-04-12] MEDS: NORVASC TAB 5 MG PO SCH (16:14)
[2022-04-12] MEDS: SNACK - Diabetic Appropriate PO SCH (21:16)
[2022-04-13] MEDS: XOPENEX 1.25 MG/3 ML NEBULE NEB SCH ×6 (00:19→18:00)
[2022-04-13 05:31] LABS: BASOPHILS % (AUTO) 0.2 % (0.2-1.0); EOSINOPHILS % (AUTO) 0.1 % (0.9-2.9); HEMATOCRIT 31.1 % (36.0-47.0); HEMOGLOBIN 10.6 g/dL (12.0-16.0); LYMPHOCYTES # (AUTO) 2.1 X10^3/uL (1.3-2.9); LYMPHOCYTES % (AUTO) 14.9 % (21.0-51.0); MEAN CORPUSCULAR HEMOGLOBIN 30.3 pg (27.0-34.0); MEAN CORPUSCULAR HGB CONC 34.2 g/dL (33.0-35.0); MEAN CORPUSCULAR VOLUME 88.6 fL (80.0-100.0); MEAN PLATELET VOLUME 7.6 fL (7.4-11.0); MONOCYTES # (AUTO) 1.3 x10^3/uL (0.3-0.8); NEUTROPHILS # (AUTO) 10.7 x10^3/uL (2.2-4.8); NEUTROPHILS % (AUTO) 75.8 % (42.0-75.0); RED BLOOD COUNT 3.51 X10^6/uL (3.5-5.4); RED CELL DISTRIBUTION WIDTH 14.7 % (11.6-16.5); WHITE BLOOD COUNT 14.1 X10^3/uL (3.6-10.0)
[2022-04-13] MEDS: SYNTHROID 125 mcg TAB PO SCH (05:33)
[2022-04-13 05:52] LABS: ALANINE AMINOTRANSFERASE 27 Units/L (12-78); ALBUMIN 2.7 g/dL (3.4-5.0); ALKALINE PHOSPHATASE 66 Units/L (46-116); ASPARTATE AMINO TRANSFERASE 18 Units/L (15-37); BLOOD UREA NITROGEN 20 mg/dL (7-18); CARBON DIOXIDE 29.9 mmol/L (21-32); CHLORIDE 110 mmol/L (98-107); CREATININE 0.86 mg/dL (0.55-1.02); SODIUM 147 mmol/L (136-145); TOTAL PROTEIN 3.8 g/dL (6.4-8.2); eGFR NON BLACK RACES > 60 (>60)
[2022-04-13] MEDS ORDERED: MICRO K EXTEN CAP 10 MEQ PO PRN (06:26)
[2022-04-13] MEDS ORDERED: POTASSIUM CHL 40 MEQ/NS 0.45% 500 ML IV PRN (06:26)
[2022-04-13] MEDS ORDERED: K-DUR TAB 20 MEQ PO PRN (06:26)
[2022-04-13] MEDS ORDERED: POTASSIUM CHL 60 MEQ/NS 0.45% 500 ML IV PRN (06:26)
[2022-04-13] MEDS ORDERED: KLOR-CON PO PRN (06:26)
[2022-04-13] MEDS ORDERED: POTASSIUM CHLORIDE LIQ 20 MEQ UDC PO PRN (06:26)
[2022-04-13] MEDS ORDERED: K-RIDER 10 MEQ/NS 100 ML 10 MEQ/100 ML BAG IV PRN (06:26)
[2022-04-13] MEDS: MAGNESIUM SULFATE 1 GRAM/100 mL PREMIX 1 G/100 ML BAG IV PRN ×2 (07:30→11:49)
[2022-04-13] MEDS: PULMICORT NEB TX 0.5 MG NEB SCH ×2 (08:30→21:55)
[2022-04-13] MEDS: BROVANA IN SCH ×2 (08:30→21:56)
[2022-04-13] MEDS ORDERED: NS 1/2 1,000 ML IV 1,000 ML IV ONE (08:37)
[2022-04-13] MEDS: ROCEPHIN VIAL 1 GRAM 1 G in NS 100 ML IV 100 ML IV SCH (08:42)
[2022-04-13] MEDS: NS 1/2 1,000 ML IV 1,000 ML IV SCH (08:44)
[2022-04-13] MEDS: ROBITUSSIN DM PO SCH ×4 (08:45→20:27)
[2022-04-13] MEDS: ZESTRIL TAB 40 MG PO SCH (08:45)
[2022-04-13] MEDS: VITAMIN D3 125 mcg (5,000 UNITS) PO SCH (08:45)
[2022-04-13] MEDS: ZyrTEC TAB 10 MG PO SCH (08:45)
[2022-04-13] MEDS: TESSALON PERLES PO SCH ×2 (08:46→20:27)
[2022-04-13] MEDS: PROTONIX INJ 40 MG VIAL IVP SCH ×2 (08:46→20:27)
[2022-04-13] MEDS: SOLU-Medrol 40 MG VIAL IVP SCH (08:46)
[2022-04-13] MEDS: NORVASC TAB 5 MG PO SCH (08:48)
[2022-04-13] MEDS: LOVENOX INJ 40 MG SYR SC SCH (08:50)
[2022-04-13] MEDS: ZITHROMAX INJ 500 MG VIAL 500 MG in NS 250 ML IV 250 ML IV SCH (09:35)
[2022-04-13 11:06] VITALS: BMI 21.2
[2022-04-13] MEDS: SNACK - Diabetic Appropriate PO SCH (20:27)
[2022-04-14] MEDS: XOPENEX 1.25 MG/3 ML NEBULE NEB SCH ×4 (00:53→17:16)
[2022-04-14] MEDS: SYNTHROID 125 mcg TAB PO SCH (05:59)
[2022-04-14 06:05] LABS: BASOPHILS % (AUTO) 0.4 % (0.2-1.0); EOSINOPHILS % (AUTO) 0.2 % (0.9-2.9); HEMATOCRIT 33.6 % (36.0-47.0); HEMOGLOBIN 11.3 g/dL (12.0-16.0); LYMPHOCYTES # (AUTO) 2.5 X10^3/uL (1.3-2.9); LYMPHOCYTES % (AUTO) 19.4 % (21.0-51.0); MEAN CORPUSCULAR HEMOGLOBIN 29.7 pg (27.0-34.0); MEAN CORPUSCULAR HGB CONC 33.6 g/dL (33.0-35.0); MEAN CORPUSCULAR VOLUME 88.5 fL (80.0-100.0); MEAN PLATELET VOLUME 7.5 fL (7.4-11.0); MONOCYTES # (AUTO) 1.1 x10^3/uL (0.3-0.8); MONOCYTES % (AUTO) 8.7 % (0.0-13.0); NEUTROPHILS # (AUTO) 9.3 x10^3/uL (2.2-4.8); NEUTROPHILS % (AUTO) 71.3 % (42.0-75.0); RED CELL DISTRIBUTION WIDTH 14.9 % (11.6-16.5)
[2022-04-14 06:12] LABS: ALANINE AMINOTRANSFERASE 34 Units/L (12-78); ALBUMIN 2.9 g/dL (3.4-5.0); ALKALINE PHOSPHATASE 64 Units/L (46-116); ASPARTATE AMINO TRANSFERASE 17 Units/L (15-37); BLOOD UREA NITROGEN 20 mg/dL (7-18); CALCIUM 8.3 mg/dL (8.5-10.1); CARBON DIOXIDE 33.1 mmol/L (21-32); CHLORIDE 106 mmol/L (98-107); COR CA(FOR HYPOALB) 9.2 mg/dL (8.5-10.1); MAGNESIUM 2.3 mg/dL (2.0-2.9); SODIUM 145 mmol/L (136-145); TOTAL PROTEIN 5.6 g/dL (6.4-8.2); eGFR NON BLACK RACES > 60 (>60)
[2022-04-14] MEDS: ROCEPHIN VIAL 1 GRAM 1 G in NS 100 ML IV 100 ML IV SCH (07:59)
[2022-04-14] MEDS: PULMICORT NEB TX 0.5 MG NEB SCH ×2 (08:17→20:58)
[2022-04-14] MEDS: BROVANA IN SCH ×2 (08:17→20:58)
[2022-04-14] MEDS ORDERED: PEPCID TAB 40 MG PO PRN (08:31)
[2022-04-14] MEDS ORDERED: TUSSIONEX PENNKINETIC SUSP PO ONE (08:31)
[2022-04-14] MEDS: ZITHROMAX INJ 500 MG VIAL 500 MG in NS 250 ML IV 250 ML IV SCH (08:54)
[2022-04-14] MEDS: VITAMIN D3 125 mcg (5,000 UNITS) PO SCH (08:56)
[2022-04-14] MEDS: PROTONIX INJ 40 MG VIAL IVP SCH ×2 (08:56→20:46)
[2022-04-14] MEDS: TESSALON PERLES PO SCH ×2 (08:56→20:47)
[2022-04-14] MEDS: SOLU-Medrol 40 MG VIAL IVP SCH (08:56)
[2022-04-14] MEDS: ROBITUSSIN DM PO SCH ×4 (08:58→20:46)
[2022-04-14] MEDS: ZESTRIL TAB 40 MG PO SCH (08:59)
[2022-04-14] MEDS: LOVENOX INJ 40 MG SYR SC SCH (08:59)
[2022-04-14] MEDS: ZyrTEC TAB 10 MG PO SCH (08:59)
[2022-04-14] MEDS: NORVASC TAB 5 MG PO SCH (08:59)
[2022-04-14] MEDS: FLONASE NASAL SPRAY ENOSTRIL SCH (09:01)
[2022-04-14] MEDS: NS 1/2 1,000 ML IV 1,000 ML IV SCH (09:02)
[2022-04-14 11:20] LABS: ABG BASE EXCESS 9.2 mmol/L (-2.0-2.0)
[2022-04-14 11:21] LABS: ABG ALLEN TEST POS; ABG HCO3 35.2 mmol/L (22-26)
[2022-04-14] MEDS ORDERED: NORVASC TAB 5 MG PO ONE (12:00)
[2022-04-14] MEDS: SNACK - Diabetic Appropriate PO SCH (19:33)
[2022-04-14] MEDS ORDERED: SINGULAIR TAB 10 MG PO SCH (21:00)
[2022-04-15] MEDS: XOPENEX 1.25 MG/3 ML NEBULE NEB SCH ×3 (00:50→12:20)
--- NOTE | 2022-04-15 05:13 | RAD ---
HISTORYSOB, BRONCHITIS HX: ASTHMA, COPDSTUDYCHEST, PA/LAT [id number]/01/[id number] trachea is midline. The cardiac silhouette is unremarkable. The lungs are clear without focal infiltrate or effusion. The bony thorax is unremarkable.IMPRESSIONNo acute cardiopulmonary findings .Electronically signed by: Jordan Hernandez (Apr 15, 2022 05:11:32)
[2022-04-15] MEDS: SYNTHROID 125 mcg TAB PO SCH (05:30)
[2022-04-15 06:30] LABS: BASOPHILS % (AUTO) 0.1 % (0.2-1.0); EOSINOPHILS % (AUTO) 0.3 % (0.9-2.9); HEMATOCRIT 33.4 % (36.0-47.0); HEMOGLOBIN 11.4 g/dL (12.0-16.0); LYMPHOCYTES # (AUTO) 2.9 X10^3/uL (1.3-2.9); LYMPHOCYTES % (AUTO) 22.2 % (21.0-51.0); MEAN CORPUSCULAR HEMOGLOBIN 30.1 pg (27.0-34.0); MEAN CORPUSCULAR HGB CONC 34.2 g/dL (33.0-35.0); MEAN CORPUSCULAR VOLUME 88.2 fL (80.0-100.0); MEAN PLATELET VOLUME 7.3 fL (7.4-11.0); MONOCYTES # (AUTO) 1.1 x10^3/uL (0.3-0.8); MONOCYTES % (AUTO) 8.8 % (0.0-13.0); NEUTROPHILS # (AUTO) 8.9 x10^3/uL (2.2-4.8); NEUTROPHILS % (AUTO) 68.6 % (42.0-75.0); RED BLOOD COUNT 3.79 X10^6/uL (3.5-5.4); RED CELL DISTRIBUTION WIDTH 14.7 % (11.6-16.5)
[2022-04-15 06:44] LABS: ALANINE AMINOTRANSFERASE 33 Units/L (12-78); ALBUMIN 2.8 g/dL (3.4-5.0); ALKALINE PHOSPHATASE 61 Units/L (46-116); ASPARTATE AMINO TRANSFERASE 19 Units/L (15-37); BLOOD UREA NITROGEN 19 mg/dL (7-18); CALCIUM 8.4 mg/dL (8.5-10.1); CARBON DIOXIDE 34.6 mmol/L (21-32); CHLORIDE 102 mmol/L (98-107); COR CA(FOR HYPOALB) 9.4 mg/dL (8.5-10.1); CREATININE 0.75 mg/dL (0.55-1.02); SODIUM 144 mmol/L (136-145); TOTAL PROTEIN 5.5 g/dL (6.4-8.2); eGFR NON BLACK RACES > 60 (>60)
[2022-04-15] MEDS: BROVANA IN SCH (08:24)
[2022-04-15] MEDS: PULMICORT NEB TX 0.5 MG NEB SCH (08:24)
[2022-04-15] MEDS: LOVENOX INJ 40 MG SYR SC SCH (09:14)
[2022-04-15] MEDS: SOLU-Medrol 40 MG VIAL IVP SCH (09:14)
[2022-04-15] MEDS: ROCEPHIN VIAL 1 GRAM 1 G in NS 100 ML IV 100 ML IV SCH (09:14)
[2022-04-15] MEDS: TESSALON PERLES PO SCH (09:14)
[2022-04-15] MEDS: NORVASC TAB 5 MG PO SCH (09:14)
[2022-04-15] MEDS: VITAMIN D3 125 mcg (5,000 UNITS) PO SCH (09:14)
[2022-04-15] MEDS: FLONASE NASAL SPRAY ENOSTRIL SCH (09:15)
[2022-04-15] MEDS: PROTONIX INJ 40 MG VIAL IVP SCH (09:15)
[2022-04-15] MEDS: ROBITUSSIN DM PO SCH ×2 (09:15→14:40)
[2022-04-15] MEDS: ZyrTEC TAB 10 MG PO SCH (09:15)
[2022-04-15] MEDS: ZESTRIL TAB 40 MG PO SCH (09:15)
[2022-04-15] MEDS: NS 1/2 1,000 ML IV 1,000 ML IV SCH (09:16)
[2022-04-15] MEDS: ZITHROMAX INJ 500 MG VIAL 500 MG in NS 250 ML IV 250 ML IV SCH (10:15)
[2022-04-15 12:49] VITALS: BP 172/79
== END 2022-04-15 15:45 | disposition home health service (06) | DRG 203 ==
LOC: MED/SURG 12:45
PROVIDERS: ADMIT Internal Medicine; ATTEND Internal Medicine
DX: I10 Essential (primary) hypertension; K21.9 Gastro-esophageal reflux disease without esophagitis; Z20.822 Contact with and (suspected) exposure to COVID-19; B95.3 Streptococcus pneumoniae as the cause of diseases classified elsewhere; R26.89 Other abnormalities of gait and mobility; R06.02 Shortness of breath; J20.6 Acute bronchitis due to rhinovirus; R94.31 Abnormal electrocardiogram [ECG] [EKG]; E11.65 Type 2 diabetes mellitus with hyperglycemia; R06.03 Acute respiratory distress; E03.8 Other specified hypothyroidism